=== PATIENT | male | born 1985 | race Caucasian/White ===

== ENCOUNTER 2024-08-17 09:18 | Emergency (ER) | payer SELFPAY ==
[2024-08-17 09:19] VITALS: BP 173/118
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
[2024-08-17 09:45] VITALS: BMI 29.2
[2024-08-17 10:24] VITALS: BP 126/87
[2024-08-17] MEDS: KEPPRA 1000 MG IV (10:24)
[2024-08-17 10:25] VITALS: BP 126/87
[2024-08-17 10:27] LABS: ALT (SGPT) 40 U/L (0-50); AST (SGOT) 33 U/L (17-59); Albumin 4.6 g/dl (3.5-5.0); Alkaline Phosphatase 118 U/L (38-126); Blood Urea Nitrogen 13 mg/dl (9-20); Calcium 10.4 mg/dl (8.4-10.2); Carbon Dioxide 27 mmol/L (22-30); Chloride 103 mmol/L (98-107); Estimated Creatinine Clearance > 125 ml/min; Glucose 122 mg/dl (70-99); Potassium 4.5 mmol/L (3.5-5.1); Sodium 140 mmol/L (135-145); Total Bilirubin 0.5 mg/dl (0.2-1.3); Total Protein 7.6 g/dl (6.3-8.2); eGFR > 60.00
[2024-08-17 10:31] LABS: Alcohol None Detected
[2024-08-17 11:00] VITALS: BP 130/81
[2024-08-17 11:13] LABS: TSH Reflex To Free T4 1.47 uIU/ml (0.47-4.68)
[2024-08-17 13:00] LABS: % Basophils 0.3 % (0-2); % Eosinophils 0.1 % (0-6); % Immature Granulocytes 0.7 % (0-0.5); % Lymphocytes 5.8 % (20.5-51.1); % Monocytes 3.3 % (1.7-9.3); % Neutrophils 89.8 % (42.2-75.2); Absolute Basophils 0.1 10^3/uL (0-0.2); Absolute Immature Granulocytes 0.1 10^3/uL (0-0.05); Absolute Lymphocytes 1.2 10^3/uL (1.2-3.4); Absolute Monocytes 0.7 10^3/uL (0.1-0.6); Hematocrit 45.7 % (39.0-52.0); Hemoglobin 15.7 g/dL (13.0-18.0); Mean Corp Hgb Conc. 34.4 g/dL (33.0-37.0); Mean Corpuscular Hgb 29.5 pg (27.0-31.0); Mean Corpuscular Volume 85.7 fL (80.0-94.0); Mean Platelet Volume 11.1 fL (7.4-10.4); Nucleated Red Blood Cells % 0 % (-); Platelet Count 350 10^3/uL (130-400); Red Blood Cell Count 5.33 10^6/uL (4.70-6.10); Red Cell Dist. Width 12.9 % (11.5-14.5); White Blood Cell Count 21.1 10^3/uL (4.8-10.8)
== END 2024-08-17 11:42 | disposition home or self-care (01) ==
LOC: EMR 09:18
PROVIDERS: EMERGENCY PHYSICIAN Emergency Medicine
DX: R56.9 Unspecified convulsions (principal); F12.90 Cannabis use, unspecified, uncomplicated
CPT/HCPCS: 96374; 99284; 70450; 80053; 82077; 84443; 85025